=== PATIENT | female | born 1950 | race African-American/Black ===

== ENCOUNTER 2017-07-01 09:53 | Inpatient (IN) | payer MEDICARE ==
[2017-07-01 10:12] LABS: ADD MAN DIFF? NO
[2017-07-01 10:30] LABS: ANION GAP 7 (6-14); BLOOD UREA NITROGEN 20 mg/dL (7-20); BUN/CREATININE RATIO 13 (6-20); CALCIUM 9.3 mg/dL (8.5-10.1); CARBON DIOXIDE 31 mmol/L (21-32); CHLORIDE 97 mmol/L (98-107); CREATININE 1.5 mg/dL (0.6-1.0); GFR 34.6; GLUCOSE 463 mg/dL (70-99); POTASSIUM 4.8 mmol/L (3.5-5.1); SODIUM 135 mmol/L (136-145)
[2017-07-01] MEDS: IV NORMAL SALINE 1000ML BAG 1,000 ML IV (10:30)
[2017-07-01] MEDS ORDERED: hydrALAZINE 20 MG/ML VIAL. (10:33)
[2017-07-01] MEDS: ONDANSETRON PF 4 MG/2 ML VIAL. IV (10:34)
[2017-07-01 10:36] LABS: BASO % 0 % (0-3); EOS % 0 % (0-3); HEMATOCRIT 42.1 % (36.0-47.0); HEMOGLOBIN 13.7 g/dL (12.0-15.5); LYMPH # 1.5 x10^3/uL (1.0-4.8); LYMPH % 14 % (24-48); MEAN CORPUSCULAR HEMOGLOBIN 30 pg (25-35); MEAN CORPUSCULAR HGB CONC 33 g/dL (31-37); MEAN CORPUSCULAR VOLUME 93 fL (79-100); MONO # 0.5 x10^3/uL (0.0-1.1); MONO % 4 % (0-9); NEUT # 9.3 x10^3uL (1.8-7.7); NEUT % 82 % (31-73); PLATELET COUNT 185 x10^3/uL (140-400); RED BLOOD COUNT 4.53 x10^6/uL (3.50-5.40); RED CELL DISTRIBUTION WIDTH 13.3 % (11.5-14.5); WHITE BLOOD COUNT 11.4 x10^3/uL (4.0-11.0)
[2017-07-01 10:37] LABS: ALBUMIN 2.6 g/dL (3.4-5.0); ALBUMIN/GLOBULIN RATIO 0.5 (1.0-1.7); ALK PHOS 111 U/L (46-116); ALT (SGPT) 25 U/L (14-59); AST (SGOT) 24 U/L (15-37); CREATINE KINASE 70 U/L (26-192); LIPASE 96 U/L (73-393); TOTAL BILIRUBIN 0.4 mg/dL (0.2-1.0); TOTAL PROTEIN 8.2 g/dL (6.4-8.2)
[2017-07-01] MEDS: hydrALAZINE 20 MG/ML VIAL. IVP (10:37)
[2017-07-01 10:38] LABS: INR 0.9 (0.8-1.1); PARTIAL THROMBOPLASTIN TIME 26 SEC (24-38); PROTHROMBIN TIME PATIENT 12.1 SEC (11.7-14.0)
[2017-07-01 10:44] LABS: CKMB MASS 1.2 ng/mL (0.0-3.6); CREATINE KINASE 71 U/L (26-192)
[2017-07-01 10:44] LABS: TROPONINI 0.024 ng/mL (0.000-0.055)
[2017-07-01 11:05] LABS: PLT ESTIMATE ADEQUATE (ADEQUATE)
[2017-07-01] MEDS: METOCLOPRAMIDE HCL 10 MG/2 ML VIAL. IV (11:13)
[2017-07-01] MEDS: diphenhydrAMINE 50 MG/ML VIAL IVP (11:13)
[2017-07-01 11:26] LABS: POC GLUCOSE 385 mg/dL (70-99)
[2017-07-01] MEDS ORDERED: INSULIN REGULAR 100 UNIT/ML 10ML VIAL. IV (11:30)
[2017-07-01] MEDS: INSULIN REGULAR 100 UNIT/ML 10ML VIAL. IV (11:39)
[2017-07-01] MEDS ORDERED: ONDANSETRON PF 4 MG/2 ML VIAL. IV (11:45)
[2017-07-01] MEDS ORDERED: MORPHINE SULFATE 4 MG/ML DISP.SYRIN. IV (11:45)
[2017-07-01 12:57] LABS: POC GLUCOSE 336 mg/dL (70-99)
[2017-07-01 13:44] LABS: POC GLUCOSE 356 mg/dL (70-99)
[2017-07-01] MEDS: POLYETHYLENE GLYCOL 3350 17 GM PACKET. PO (15:07)
[2017-07-01] MEDS: cloNIDine HCL 0.1 MG TABLET PO (15:07)
[2017-07-01] MEDS: amLODIPine BESYLATE 10 MG TABLET PO (15:07)
[2017-07-01 16:11] LABS: POC GLUCOSE 341 mg/dL (70-99)
[2017-07-01] MEDS ORDERED: hydrALAZINE 20 MG/ML VIAL. IVP (16:15)
[2017-07-01] MEDS: CARVEDILOL 12.5 MG TABLET. PO ×2 (16:21→16:29)
[2017-07-01] MEDS: INSULIN ASPART 300 UNITS/3 ML INSULN.PEN SQ ×2 (16:26→16:27)
[2017-07-01] MEDS: ISOSORBIDE MONONITRATE ER 30 MG TAB.ER.24H PO (16:55)
[2017-07-01 19:06] LABS: CHOLESTEROL 192 mg/dL (0-200); HDLC 48 mg/dL (40-60); LDLC 126 mg/dL (0-100); NON-HDL CHOLESTEROL 144 mg/dL (0-129); TRIGLYCERIDES 90 mg/dL (0-150); VLDLC 18 mg/dL (0-40)
[2017-07-01 19:15] LABS: THYROID STIM HORMONE (TSH) 3.758 uIU/mL (0.358-3.74)
[2017-07-01 19:36] LABS: TROPONINI 0.059 ng/mL (0.000-0.055)
[2017-07-01] MEDS ORDERED: INSULIN DETEMIR 300 UNITS/3 ML INSULN.PEN. SQ (21:00)
[2017-07-01] MEDS: hydrALAZINE 25 MG TABLET PO (21:00)
[2017-07-01] MEDS: ATORVASTATIN CALCIUM 20 MG TABLET PO (21:23)
[2017-07-01] MEDS: FAMOTIDINE 20 MG TABLET. PO (21:23)
[2017-07-01 22:26] LABS: POC GLUCOSE 245 mg/dL (70-99)
[2017-07-01] MEDS: INSULIN DETEMIR 300 UNITS/3 ML INSULN.PEN. SQ (22:35)
[2017-07-02 00:24] LABS: TROPONINI 0.048 ng/mL (0.000-0.055)
[2017-07-02 04:05] LABS: ADD MAN DIFF? NO
[2017-07-02 05:05] LABS: BASO % 0 % (0-3); EOS % 0 % (0-3); HEMATOCRIT 34.4 % (36.0-47.0); HEMOGLOBIN 11.4 g/dL (12.0-15.5); LYMPH # 2.7 x10^3/uL (1.0-4.8); LYMPH % 27 % (24-48); MEAN CORPUSCULAR HEMOGLOBIN 31 pg (25-35); MEAN CORPUSCULAR HGB CONC 33 g/dL (31-37); MEAN CORPUSCULAR VOLUME 94 fL (79-100); MONO # 0.7 x10^3/uL (0.0-1.1); MONO % 7 % (0-9); NEUT # 6.4 x10^3uL (1.8-7.7); NEUT % 65 % (31-73); PLATELET COUNT 159 x10^3/uL (140-400); RED BLOOD COUNT 3.68 x10^6/uL (3.50-5.40); WHITE BLOOD COUNT 9.9 x10^3/uL (4.0-11.0)
[2017-07-02 05:53] LABS: ALBUMIN 2.1 g/dL (3.4-5.0); ALBUMIN/GLOBULIN RATIO 0.4 (1.0-1.7); ALK PHOS 77 U/L (46-116); ALT (SGPT) 17 U/L (14-59); ANION GAP 8 (6-14); AST (SGOT) 18 U/L (15-37); BLOOD UREA NITROGEN 26 mg/dL (7-20); BUN/CREATININE RATIO 12 (6-20); CALCIUM 8.6 mg/dL (8.5-10.1); CARBON DIOXIDE 27 mmol/L (21-32); CHLORIDE 102 mmol/L (98-107); CREATININE 2.2 mg/dL (0.6-1.0); GFR 26.9; GLUCOSE 295 mg/dL (70-99); POTASSIUM 4.5 mmol/L (3.5-5.1); SODIUM 137 mmol/L (136-145); TOTAL BILIRUBIN 0.5 mg/dL (0.2-1.0); TOTAL PROTEIN 7.1 g/dL (6.4-8.2)
[2017-07-02] MEDS: INSULIN ASPART 300 UNITS/3 ML INSULN.PEN SQ ×6 (08:13→17:00)
[2017-07-02 08:26] LABS: POC GLUCOSE 308 mg/dL (70-99)
[2017-07-02] MEDS: hydrALAZINE 25 MG TABLET PO ×3 (09:04→23:53)
[2017-07-02] MEDS: amLODIPine BESYLATE 10 MG TABLET PO (09:05)
[2017-07-02] MEDS: ISOSORBIDE MONONITRATE ER 30 MG TAB.ER.24H PO (09:05)
[2017-07-02] MEDS: CARVEDILOL 12.5 MG TABLET. PO ×2 (09:05→17:00)
[2017-07-02] MEDS: POLYETHYLENE GLYCOL 3350 17 GM PACKET. PO (09:06)
[2017-07-02 12:07] LABS: POC GLUCOSE 178 mg/dL (70-99)
[2017-07-02] MEDS: IV NORMAL SALINE 1000ML BAG 1,000 ML IV ×2 (12:10→23:51)
[2017-07-02] MEDS ORDERED: DOCUSATE SODIUM 100 MG CAPSULE. PO (15:00)
[2017-07-02] MEDS ORDERED: MORPHINE SULFATE 4 MG/ML DISP.SYRIN. IV (15:00)
[2017-07-02] MEDS ORDERED: hydrALAZINE 20 MG/ML VIAL. IVP (15:00)
[2017-07-02 15:28] LABS: HEMOGLOBIN A1C 12.1 % (4.8-5.6)
[2017-07-02 16:53] LABS: POC GLUCOSE 129 mg/dL (70-99)
[2017-07-02 20:18] LABS: POC GLUCOSE 85 mg/dL (70-99)
[2017-07-02] MEDS: ATORVASTATIN CALCIUM 20 MG TABLET PO (20:45)
[2017-07-02 21:36] LABS: POC GLUCOSE 281 mg/dL (70-99)
[2017-07-02] MEDS: INSULIN DETEMIR 300 UNITS/3 ML INSULN.PEN. SQ (21:48)
[2017-07-03 05:01] LABS: ADD MAN DIFF? NO
[2017-07-03 05:30] LABS: BASO % 0 % (0-3); EOS % 0 % (0-3); HEMATOCRIT 34.7 % (36.0-47.0); HEMOGLOBIN 11.3 g/dL (12.0-15.5); LYMPH # 2.1 x10^3/uL (1.0-4.8); LYMPH % 21 % (24-48); MEAN CORPUSCULAR HEMOGLOBIN 31 pg (25-35); MEAN CORPUSCULAR HGB CONC 33 g/dL (31-37); MEAN CORPUSCULAR VOLUME 94 fL (79-100); MONO # 0.8 x10^3/uL (0.0-1.1); MONO % 8 % (0-9); NEUT % 71 % (31-73); PLATELET COUNT 150 x10^3/uL (140-400); RED BLOOD COUNT 3.69 x10^6/uL (3.50-5.40); RED CELL DISTRIBUTION WIDTH 13.3 % (11.5-14.5)
[2017-07-03 05:49] LABS: ANION GAP 11 (6-14); BLOOD UREA NITROGEN 28 mg/dL (7-20); CARBON DIOXIDE 23 mmol/L (21-32); CHLORIDE 104 mmol/L (98-107); CREATININE 1.6 mg/dL (0.6-1.0); GFR 38.9; GLUCOSE 313 mg/dL (70-99); POTASSIUM 4.2 mmol/L (3.5-5.1); SODIUM 138 mmol/L (136-145)
[2017-07-03 07:19] LABS: POC GLUCOSE 315 mg/dL (70-99)
[2017-07-03] MEDS: CARVEDILOL 12.5 MG TABLET. PO ×2 (08:18→17:00)
[2017-07-03] MEDS: IV NORMAL SALINE 1000ML BAG 1,000 ML IV ×2 (08:19→23:37)
[2017-07-03] MEDS: PANTOPRAZOLE 40 MG TABLET.DR. PO (08:19)
[2017-07-03] MEDS: ISOSORBIDE MONONITRATE ER 30 MG TAB.ER.24H PO (08:19)
[2017-07-03] MEDS: hydrALAZINE 25 MG TABLET PO ×3 (08:19→23:44)
[2017-07-03] MEDS: POLYETHYLENE GLYCOL 3350 17 GM PACKET. PO (08:19)
[2017-07-03] MEDS: ASPIRIN ENTERIC COATED 81 MG TABLET.DR. PO (08:19)
[2017-07-03] MEDS: amLODIPine BESYLATE 10 MG TABLET PO (08:19)
[2017-07-03] MEDS: INSULIN ASPART 300 UNITS/3 ML INSULN.PEN SQ ×6 (08:33→17:00)
[2017-07-03 11:25] LABS: POC GLUCOSE 185 mg/dL (70-99)
[2017-07-03] MEDS: cloNIDine HCL 0.1 MG TABLET PO ×2 (12:14→23:43)
[2017-07-03] MEDS: traMADol 50 MG TABLET PO (12:15)
[2017-07-03 21:12] LABS: POC GLUCOSE 317 mg/dL (70-99)
[2017-07-03] MEDS: INSULIN DETEMIR 300 UNITS/3 ML INSULN.PEN. SQ (22:47)
[2017-07-03] MEDS: ONDANSETRON PF 4 MG/2 ML VIAL. IV (23:15)
[2017-07-03] MEDS: ACETAMINOPHEN 325 MG TABLET. PO (23:42)
[2017-07-03] MEDS: ATORVASTATIN CALCIUM 20 MG TABLET PO (23:42)
[2017-07-04 05:05] LABS: ANION GAP 9 (6-14); BLOOD UREA NITROGEN 21 mg/dL (7-20); CALCIUM 8.5 mg/dL (8.5-10.1); CARBON DIOXIDE 31 mmol/L (21-32); CHLORIDE 101 mmol/L (98-107); CREATININE 1.5 mg/dL (0.6-1.0); GFR 41.9; GLUCOSE 371 mg/dL (70-99); POTASSIUM 3.9 mmol/L (3.5-5.1); SODIUM 141 mmol/L (136-145)
[2017-07-04] MEDS: cloNIDine HCL 0.1 MG TABLET PO ×3 (06:10→23:47)
[2017-07-04 07:29] LABS: POC GLUCOSE 360 mg/dL (70-99)
[2017-07-04] MEDS: INSULIN ASPART 300 UNITS/3 ML INSULN.PEN SQ ×7 (07:30→16:42)
[2017-07-04] MEDS: CARVEDILOL 12.5 MG TABLET. PO ×2 (09:12→17:00)
[2017-07-04] MEDS: ASPIRIN ENTERIC COATED 81 MG TABLET.DR. PO (09:12)
[2017-07-04] MEDS: hydrALAZINE 25 MG TABLET PO ×3 (09:13→20:35)
[2017-07-04] MEDS: ISOSORBIDE MONONITRATE ER 30 MG TAB.ER.24H PO (09:13)
[2017-07-04] MEDS: PANTOPRAZOLE 40 MG TABLET.DR. PO (09:14)
[2017-07-04] MEDS: POLYETHYLENE GLYCOL 3350 17 GM PACKET. PO (09:14)
[2017-07-04] MEDS: amLODIPine BESYLATE 10 MG TABLET PO (09:14)
[2017-07-04] MEDS: IV NORMAL SALINE 1000ML BAG 1,000 ML IV ×2 (09:29→20:33)
[2017-07-04 10:30] LABS: POC GLUCOSE 392 mg/dL (70-99)
[2017-07-04 10:30] LABS: POC GLUCOSE 338 mg/dL (70-99)
[2017-07-04] MEDS: METOCLOPRAMIDE HCL 10 MG/2 ML VIAL. IV ×2 (10:55→17:25)
[2017-07-04 11:48] LABS: POC GLUCOSE 253 mg/dL (70-99)
[2017-07-04] MEDS: IV RINGERS,LACTATED 1000ML 1,000 ML IV ×2 (14:21→23:48)
[2017-07-04] MEDS ORDERED: PROPOFOL 20 ML IV (15:25)
[2017-07-04] MEDS ORDERED: LIDOCAINE 2% 100 MG/5 ML SYRINGE. (15:25)
[2017-07-04 16:40] LABS: POC GLUCOSE 110 mg/dL (70-99)
[2017-07-04] MEDS: ATORVASTATIN CALCIUM 20 MG TABLET PO (20:34)
[2017-07-04 20:39] LABS: POC GLUCOSE 193 mg/dL (70-99)
[2017-07-04] MEDS: INSULIN DETEMIR 300 UNITS/3 ML INSULN.PEN. SQ (20:40)
[2017-07-05] MEDS: cloNIDine HCL 0.1 MG TABLET PO ×3 (05:36→23:35)
[2017-07-05 07:22] LABS: POC GLUCOSE 150 mg/dL (70-99)
[2017-07-05] MEDS: INSULIN ASPART 300 UNITS/3 ML INSULN.PEN SQ ×6 (07:30→16:59)
[2017-07-05] MEDS ORDERED: METOCLOPRAMIDE 5 MG TABLET. PO (11:00)
[2017-07-05] MEDS: hydrALAZINE 25 MG TABLET PO ×3 (12:11→21:12)
[2017-07-05] MEDS: PANTOPRAZOLE 40 MG TABLET.DR. PO (12:11)
[2017-07-05] MEDS: ASPIRIN ENTERIC COATED 81 MG TABLET.DR. PO (12:12)
[2017-07-05] MEDS: POLYETHYLENE GLYCOL 3350 17 GM PACKET. PO (12:12)
[2017-07-05] MEDS: ISOSORBIDE MONONITRATE ER 30 MG TAB.ER.24H PO (12:12)
[2017-07-05] MEDS: CARVEDILOL 12.5 MG TABLET. PO ×2 (12:13→16:57)
[2017-07-05] MEDS: amLODIPine BESYLATE 10 MG TABLET PO (12:13)
[2017-07-05 12:19] LABS: POC GLUCOSE 354 mg/dL (70-99)
[2017-07-05] MEDS: METOCLOPRAMIDE 5 MG TABLET. PO ×2 (15:14→16:30)
[2017-07-05 16:33] LABS: POC GLUCOSE 259 mg/dL (70-99)
[2017-07-05] MEDS: IV RINGERS,LACTATED 1000ML 1,000 ML IV (16:34)
[2017-07-05] MEDS: ATORVASTATIN CALCIUM 20 MG TABLET PO (21:12)
[2017-07-05] MEDS: INSULIN DETEMIR 300 UNITS/3 ML INSULN.PEN. SQ (21:18)
[2017-07-05 22:49] LABS: POC GLUCOSE 173 mg/dL (70-99)
[2017-07-06 05:14] LABS: ADD MAN DIFF? NO
[2017-07-06 05:21] LABS: BASO % 0 % (0-3); EOS # 0.1 x10^3/uL (0.0-0.7); EOS % 1 % (0-3); HEMATOCRIT 30.5 % (36.0-47.0); HEMOGLOBIN 10.2 g/dL (12.0-15.5); LYMPH # 2.8 x10^3/uL (1.0-4.8); LYMPH % 33 % (24-48); MEAN CORPUSCULAR HEMOGLOBIN 31 pg (25-35); MEAN CORPUSCULAR HGB CONC 33 g/dL (31-37); MEAN CORPUSCULAR VOLUME 94 fL (79-100); MONO # 0.7 x10^3/uL (0.0-1.1); MONO % 8 % (0-9); NEUT % 59 % (31-73); PLATELET COUNT 144 x10^3/uL (140-400); RED BLOOD COUNT 3.25 x10^6/uL (3.50-5.40); RED CELL DISTRIBUTION WIDTH 13.2 % (11.5-14.5); WHITE BLOOD COUNT 8.6 x10^3/uL (4.0-11.0)
[2017-07-06 05:37] LABS: ANION GAP 8 (6-14); BLOOD UREA NITROGEN 25 mg/dL (7-20); CALCIUM 8.1 mg/dL (8.5-10.1); CARBON DIOXIDE 27 mmol/L (21-32); CHLORIDE 99 mmol/L (98-107); CREATININE 1.6 mg/dL (0.6-1.0); GFR 38.9; GLUCOSE 395 mg/dL (70-99); POTASSIUM 4.3 mmol/L (3.5-5.1); SODIUM 134 mmol/L (136-145)
[2017-07-06] MEDS: cloNIDine HCL 0.1 MG TABLET PO ×3 (06:41→22:00)
[2017-07-06] MEDS: IV RINGERS,LACTATED 1000ML 1,000 ML IV ×2 (07:00→20:20)
[2017-07-06 07:21] LABS: POC GLUCOSE 396 mg/dL (70-99)
[2017-07-06] MEDS: ASPIRIN ENTERIC COATED 81 MG TABLET.DR. PO (08:30)
[2017-07-06] MEDS: METOCLOPRAMIDE 5 MG TABLET. PO ×2 (08:31→11:53)
[2017-07-06] MEDS: CARVEDILOL 12.5 MG TABLET. PO ×2 (08:31→17:54)
[2017-07-06] MEDS: PANTOPRAZOLE 40 MG TABLET.DR. PO (08:31)
[2017-07-06] MEDS: INSULIN ASPART 300 UNITS/3 ML INSULN.PEN SQ ×8 (09:07→17:57)
[2017-07-06] MEDS: POLYETHYLENE GLYCOL 3350 17 GM PACKET. PO (09:30)
[2017-07-06] MEDS: amLODIPine BESYLATE 10 MG TABLET PO (09:31)
[2017-07-06] MEDS: ISOSORBIDE MONONITRATE ER 30 MG TAB.ER.24H PO (09:31)
[2017-07-06] MEDS: hydrALAZINE 25 MG TABLET PO ×3 (09:31→21:00)
[2017-07-06 11:37] LABS: POC GLUCOSE 390 mg/dL (70-99)
[2017-07-06] MEDS: INSULIN DETEMIR 300 UNITS/3 ML INSULN.PEN. SQ (12:24)
[2017-07-06 14:27] LABS: POC GLUCOSE 321 mg/dL (70-99)
[2017-07-06 17:02] LABS: POC GLUCOSE 120 mg/dL (70-99)
[2017-07-06] MEDS: ACETAMINOPHEN 325 MG TABLET. PO (18:33)
[2017-07-06] MEDS: traMADol 50 MG TABLET PO (18:33)
[2017-07-06 18:37] LABS: POC GLUCOSE 91 mg/dL (70-99)
[2017-07-06] MEDS ORDERED: INSULIN DETEMIR 300 UNITS/3 ML INSULN.PEN. SQ (21:00)
[2017-07-06] MEDS: ATORVASTATIN CALCIUM 20 MG TABLET PO (21:00)
[2017-07-06] MEDS ORDERED: GLUCAGON,HUMAN RECOMBINANT 1 MG/ML VIAL. ×2 (21:47→22:00)
[2017-07-06 21:49] LABS: POC GLUCOSE 34 mg/dL (70-99)
[2017-07-06 21:49] LABS: POC GLUCOSE 64 mg/dL (70-99)
[2017-07-06 21:49] LABS: POC GLUCOSE 29 mg/dL (70-99)
[2017-07-06] MEDS: DEXTROSE 50% 25 GM / 50ML DISP.SYRIN. IV (22:10)
[2017-07-07] MEDS: ONDANSETRON PF 4 MG/2 ML VIAL. IV (00:33)
[2017-07-07 05:20] LABS: POC GLUCOSE 62 mg/dL (70-99)
[2017-07-07 05:20] LABS: POC GLUCOSE 193 mg/dL (70-99)
[2017-07-07 05:20] LABS: POC GLUCOSE 250 mg/dL (70-99)
[2017-07-07] MEDS: INSULIN DETEMIR 300 UNITS/3 ML INSULN.PEN. SQ (05:26)
[2017-07-07] MEDS: INSULIN ASPART 300 UNITS/3 ML INSULN.PEN SQ ×4 (05:27→12:15)
[2017-07-07] MEDS: cloNIDine HCL 0.1 MG TABLET PO ×2 (06:26→13:49)
[2017-07-07 07:12] LABS: POC GLUCOSE 241 mg/dL (70-99)
[2017-07-07] MEDS: ASPIRIN ENTERIC COATED 81 MG TABLET.DR. PO (08:47)
[2017-07-07] MEDS: ISOSORBIDE MONONITRATE ER 30 MG TAB.ER.24H PO (08:47)
[2017-07-07] MEDS: amLODIPine BESYLATE 10 MG TABLET PO (08:47)
[2017-07-07] MEDS: CARVEDILOL 12.5 MG TABLET. PO (08:48)
[2017-07-07] MEDS: hydrALAZINE 25 MG TABLET PO ×2 (08:48→13:48)
[2017-07-07] MEDS: PANTOPRAZOLE 40 MG TABLET.DR. PO (08:48)
[2017-07-07] MEDS: ACETAMINOPHEN 325 MG TABLET. PO ×2 (08:52→16:16)
[2017-07-07] MEDS: POLYETHYLENE GLYCOL 3350 17 GM PACKET. PO (09:00)
[2017-07-07 11:28] LABS: POC GLUCOSE 212 mg/dL (70-99)
[2017-07-07] MEDS ORDERED: METOCLOPRAMIDE 5 MG TABLET. PO (11:30)
[2017-07-07] MEDS: METOCLOPRAMIDE HCL 10 MG/2 ML VIAL. IV (13:47)
== END 2017-07-07 17:12 | disposition home health service (06) | DRG 380 ==
LOC: ER 09:53 → 5 SOUTH 11:26
PROC: 0DJ08ZZ Inspection of Upper Intestinal Tract, Via Natural or Artificial Opening Endoscopic (ICD-10-PCS; principal; 2017-07-04 15:00)
DX: K22.10 Ulcer of esophagus without bleeding (principal); N17.0 Acute kidney failure with tubular necrosis; E11.43 Type 2 diabetes mellitus with diabetic autonomic (poly)neuropathy; K29.70 Gastritis, unspecified, without bleeding; I16.0 Hypertensive urgency; N18.3 Chronic kidney disease, stage 3 (moderate); E11.22 Type 2 diabetes mellitus with diabetic chronic kidney disease; E11.51 Type 2 diabetes mellitus with diabetic peripheral angiopathy without gangrene; E11.65 Type 2 diabetes mellitus with hyperglycemia; E78.5 Hyperlipidemia, unspecified; E86.0 Dehydration; F01.50 Vascular dementia, unspecified severity, without behavioral disturbance, psychotic disturbance, mood disturbance, and anxiety; F17.210 Nicotine dependence, cigarettes, uncomplicated; I12.9 Hypertensive chronic kidney disease with stage 1 through stage 4 chronic kidney disease, or unspecified chronic kidney disease; I25.10 Atherosclerotic heart disease of native coronary artery without angina pectoris; K21.0 Gastro-esophageal reflux disease with esophagitis; K31.84 Gastroparesis; K44.9 Diaphragmatic hernia without obstruction or gangrene; K76.0 Fatty (change of) liver, not elsewhere classified; M19.90 Unspecified osteoarthritis, unspecified site; K80.20 Calculus of gallbladder without cholecystitis without obstruction; Z79.4 Long term (current) use of insulin; Z82.49 Family history of ischemic heart disease and other diseases of the circulatory system; Z86.73 Personal history of transient ischemic attack (TIA), and cerebral infarction without residual deficits; Z90.710 Acquired absence of both cervix and uterus; Z91.11 Patient's noncompliance with dietary regimen; Z91.14 Patient's other noncompliance with medication regimen; Z91.19 Patient's noncompliance with other medical treatment and regimen; Z95.5 Presence of coronary angioplasty implant and graft
CPT/HCPCS: 36415; 70450; 71045; 74176; 76705; 76770; 78264; 80048; 80053; 80061; 82550; 82553; 82962; 83036; 83690; 84443; 84484; 85025; 85610; 85730; 88305; 88342; 93005; 93306; 93925; 93970; 96361; 96374; 96375; 97116-GP; 97162-GP; 97166-GO; 99285; 99285-25; A9541; J0360; J1200; J1610; J1815; J2405; J2704; J2765; J7030; J7042; J7120; J8597

== ENCOUNTER 2018-02-02 11:38 | Emergency (ER) | payer MEDICARE ==
[~2018-02-02] VITALS: Ht 172.7 cm; Wt 79.4 kg
[~2018-02-02 11:38] MED LIST: AMLO10TA6 PO; ASPI81TA59 PO; CARV25TA2 PO; CLON0.1T PO; ESCITALOPRAM OX20 MG PO; HYDR-2868 PO; HYDR12.58 PO; INSU100C4 SQ; INSU100V13 SQ; ISOS30TA4 PO; METO5TAB PO; PANT20TA2 PO; PRAV10TA2 PO; PROM12.56 PO; TRAM50TA PO
--- NOTE | 2018-02-02 11:54 | PHYS DOC ---
Past Medical History Past Medical History: CVA, Diabetes-Type II, High Cholesterol, Hypertension, [place] Additional Past Medical Histor: poor historian Past Surgical History: Hysterectomy, Other Additional Past Surgical Histo: cardiac stents Alcohol Use: Rarely Drug Use: None Adult General HPI HPI Patient is a 67 year old female with history of CVA, dysphagia, hypertension, high cholesterol, diabetes type 2, kidney disease, who [facility] a local [facility] to be evaluated for altered mental status. Patient is a poor historian not able to give us any information. All the information I'm getting is from the registered nurse assigned to the patient who got the information from EMS. Review of Systems Review of Systems Constitutional: Denies fever or chills [] Eyes: Denies change in visual acuity, redness, or eye pain [] HENT: Denies nasal congestion or sore throat [] Respiratory: Denies cough or shortness of breath [] Cardiovascular: No additional information not addressed in HPI [] GI: Denies abdominal pain, nausea, vomiting, bloody stools or diarrhea [] : Denies dysuria or hematuria [] Musculoskeletal: Denies back pain or joint pain [] Integument: Denies rash or skin lesions [] Neurologic: Reports altered mental status. Denies headache, focal weakness or sensory changes [] All other systems were reviewed and found to be within normal limits, except as documented in this note. Current Medications Current Medications Current Medications Medications (Trade) Dose Ordered Sig/[facility] Start Time Stop Time Status Last Admin Dose Admin Aspirin (Lino Aspirin) 325 mg 1X ONCE 02/02/18 13:00 02/02/18 13:01 DC 02/02/18 13:00 325 MG Allergies Allergies Allergies Coded Allergies Type Severity Reaction Last Updated Verified No Known Drug Allergies 07/04/17 No Physical Exam Physical Exam Constitutional: Well developed, well nourished, no acute distress, non-toxic appearance. [] HENT: Normocephalic, atraumatic, bilateral external ears normal, oropharynx moist, no oral exudates, nose normal. [] Eyes: PERRLA, EOMI, conjunctiva normal, no discharge. [] Neck: Normal range of motion, no tenderness, supple, no stridor. [] Cardiovascular:Heart rate regular rhythm, no murmur [] Lungs & Thorax: Bilateral breath sounds clear to auscultation [] Abdomen: Bowel sounds normal, soft, no tenderness, no masses, no pulsatile masses. [] Skin: Warm, dry, no erythema, no rash. [] Back: No tenderness, no CVA tenderness. [] Extremities: No tenderness, no cyanosis, no clubbing, ROM intact, limited range of motion to bilateral upper and lower extremities. Appears slightly contracted to bilateral upper extremities. Neurologic: Alert and oriented X 1, normal motor function, normal sensory function, no focal deficits noted. [] Psychologic: Affect normal, judgement normal, mood normal. [] Current Patient Data Vital Signs Vital Signs Date Time Temp Pulse Resp B/P (MAP) Pulse Ox O2 Delivery O2 Flow Rate FiO2 02/02/18 14:45 74 18 98 02/02/18 11:40 97.5 150/84 (106) Room Air 97.5 Lab Values Laboratory Tests Test 02/02/18 12:00 02/02/18 12:50 White Blood Count 11.3 x10^3/uL (4.0-11.0) H Red Blood Count 3.27 x10^6/uL (3.50-5.40) L Hemoglobin 10.3 g/dL (12.0-15.5) L Hematocrit 30.9 % (36.0-47.0) L Mean Corpuscular Volume 95 fL (79-100) Mean Corpuscular Hemoglobin 31 pg (25-35) Mean Corpuscular Hemoglobin Concent 33 g/dL (31-37) Red Cell Distribution Width 13.9 % (11.5-14.5) Platelet Count 256 x10^3/uL (140-400) Neutrophils (%) (Auto) 78 % (31-73) H Lymphocytes (%) (Auto) 15 % (24-48) L Monocytes (%) (Auto) 6 % (0-9) Eosinophils (%) (Auto) 0 % (0-3) Basophils (%) (Auto) 0 % (0-3) Neutrophils # (Auto) 8.8 x10^3uL (1.8-7.7) H Lymphocytes # (Auto) 1.7 x10^3/uL (1.0-4.8) Monocytes # (Auto) 0.7 x10^3/uL (0.0-1.1) Eosinophils # (Auto) 0.0 x10^3/uL (0.0-0.7) Basophils # (Auto) 0.0 x10^3/uL (0.0-0.2) Sodium Level 141 mmol/L (136-145) Potassium Level 4.9 mmol/L (3.5-5.1) Chloride Level 101 mmol/L (98-107) Carbon Dioxide Level 32 mmol/L (21-32) Anion Gap 8 (6-14) Blood Urea Nitrogen 34 mg/dL (7-20) H Creatinine 1.8 mg/dL (0.6-1.0) H Estimated GFR (Cockcroft-Gault) 33.9 BUN/Creatinine Ratio 19 (6-20) Glucose Level 216 mg/dL (70-99) H Calcium Level 9.7 mg/dL (8.5-10.1) Magnesium Level 1.9 mg/dL (1.8-2.4) Total Bilirubin 0.3 mg/dL (0.2-1.0) Aspartate Amino Transferase (AST) 19 U/L (15-37) Alanine Aminotransferase (ALT) 20 U/L (14-59) Alkaline Phosphatase 54 U/L (46-116) Troponin I Quantitative < 0.017 ng/mL (0.000-0.055) CA-Lrx-L-Type Natriuretic Peptide 296 pg/mL (0-124) H Total Protein 7.5 g/dL (6.4-8.2) Albumin 2.8 g/dL (3.4-5.0) L Albumin/Globulin Ratio 0.6 (1.0-1.7) L Laboratory Tests 02/02/18 12:00 Laboratory Tests 02/02/18 12:50 EKG EKG 15:[address] Sahu sinus rhythm HR 74 no STEMI[] Radiology/Procedures Radiology/Procedures []PROCEDURE: PORTABLE CHEST 1V PORTABLE CHEST 1V History: AMS. Comparison: July 01, 2017 image but no available report Cardiomediastinal silhouette: Stable Lungs: No focal airspace consolidation. Pleura: No evidence of pleural effusion. Pneumothorax: None visualized Impression: No acute radiographic findings. Electronically signed by: Aldo Curiel MD (02/02/2018 12:31 PM) [id number] PROCEDURE: CT HEAD WO CONTRAST CT head without intravenous contrast History: Altered mental status. Comparison: CT head September 16, 2017. Technique: Axial images are obtained of the head from the skull base through the vertex without IV contrast. Exposure: One or more of the following individualized dose reduction techniques were utilized for this examination: 1. Automated exposure control 2. Adjustment of the mA and/or kV according to patient size 3. Use of iterative reconstruction technique Findings: There is interval development of right paramedian frontal lobe low-attenuation, compatible with infarction in right anterior cerebral artery territory, either subacute or old in chronology; this is in right anterior cerebral artery territory. No obvious intracranial mass, mass-effect, midline shift, or hemorrhage is identified. Basilar cisterns are patent. Bone windows demonstrate no acute calvarial abnormality. The visualized paranasal sinuses appear clear. Impression: 1. Right anterior cerebral artery territory infarction, either subacute versus old. Results called to referring emergency legal department manager, Sj Patterson, at 1249 hours. Electronically signed by: Aldo Thompson MD (02/02/2018 12:49 PM) [id number] DICTATED and SIGNED BY: ALDO THOMPSON MD DATE: 02/02/18 1244 Course & Med Decision Making Course & Med Decision Making Pertinent Labs and Imaging studies reviewed. (See chart for details) This is a 67-year-old female patient presenting to the ED today to be evaluated for altered mental status change. Grand daughter came and requested we transfer patient to [facility]. She states that is where she usually receives her care. Received a call from radiologist concerning the patient's CT of the head Impression: 1. Right anterior cerebral artery territory infarction, either subacute versus old. Granddaughter states patient has had multiple strokes. Unknown if this is subacute or an old stroke. Stroke scale 14 14:[address] Holt who accepted patient at [facility]. Staff Physician Addendum: I was working in the ER during the course of this patient's visit. I was available for consultation as needed, but I was not directly involved in the care of this patient. Dragon Disclaimer Dragon Disclaimer This electronic medical record was generated, in whole or in part, using a voice recognition dictation system. Departure Departure Impression: Primary Impression: CVA (cerebral vascular accident) Additional Impression: Altered mental status Disposition: 05 TRANSFER OTHER Condition: STABLE Referrals: NEHA CHAUDHARI MD (PCP) Problem Qualifiers Primary Impression: CVA (cerebral vascular accident) CVA mechanism: unspecified Qualified Codes: I63.9 - Cerebral infarction, unspecified Additional Impression: Altered mental status Altered mental status type: unspecified Qualified Codes: R41.82 - Altered mental status, unspecified SJ PATTERSON APRN Feb 02, 2018 11:54 ALCON SAHU MD Feb 03, 2018 18:08
[2018-02-02 12:31] LABS: BASO % 0 % (0-3); EOS % 0 % (0-3); HEMATOCRIT 30.9 % (36.0-47.0); HEMOGLOBIN 10.3 g/dL (12.0-15.5); LYMPH # 1.7 x10^3/uL (1.0-4.8); LYMPH % 15 % (24-48); MEAN CORPUSCULAR HEMOGLOBIN 31 pg (25-35); MEAN CORPUSCULAR HGB CONC 33 g/dL (31-37); MEAN CORPUSCULAR VOLUME 95 fL (79-100); MONO # 0.7 x10^3/uL (0.0-1.1); MONO % 6 % (0-9); NEUT # 8.8 x10^3uL (1.8-7.7); NEUT % 78 % (31-73); PLATELET COUNT 256 x10^3/uL (140-400); RED BLOOD COUNT 3.27 x10^6/uL (3.50-5.40); RED CELL DISTRIBUTION WIDTH 13.9 % (11.5-14.5); WHITE BLOOD COUNT 11.3 x10^3/uL (4.0-11.0)
--- NOTE | 2018-02-02 12:34 | RAD ---
PORTABLE CHEST 1V History: AMS. Comparison: July 01, 2017 image but no available report Cardiomediastinal silhouette: Stable Lungs: No focal airspace consolidation. Pleura: No evidence of pleural effusion. Pneumothorax: None visualized Impression: No acute radiographic findings. Electronically signed by: Aldo Curiel MD (02/02/2018 12:31 PM) [id number]
--- NOTE | 2018-02-02 12:52 | RAD ---
CT head without intravenous contrast History: Altered mental status. Comparison: CT head September 16, 2017. Technique: Axial images are obtained of the head from the skull base through the vertex without IV contrast. Exposure: One or more of the following individualized dose reduction techniques were utilized for this examination: 1. Automated exposure control 2. Adjustment of the mA and/or kV according to patient size 3. Use of iterative reconstruction technique Findings: There is interval development of right paramedian frontal lobe low-attenuation, compatible with infarction in right anterior cerebral artery territory, either subacute or old in chronology; this is in right anterior cerebral artery territory. No obvious intracranial mass, mass-effect, midline shift, or hemorrhage is identified. Basilar cisterns are patent. Bone windows demonstrate no acute calvarial abnormality. The visualized paranasal sinuses appear clear. Impression: 1. Right anterior cerebral artery territory infarction, either subacute versus old. Results called to referring emergency director emergency department, Joana Hensley, at 1249 hours. Electronically signed by: Aldo Mccormick MD (02/02/2018 12:49 PM) [email or web address]
[2018-02-02] MEDS ORDERED: ASPIRIN 325 MG TABLET PO ONE (13:00)
[2018-02-02 13:19] LABS: CALCIUM 9.7 mg/dL (8.5-10.1); CREATININE 1.8 mg/dL (0.6-1.0); GFR 33.9; POTASSIUM 4.9 mmol/L (3.5-5.1)
[2018-02-02 13:33] LABS: ALBUMIN 2.8 g/dL (3.4-5.0); ALBUMIN/GLOBULIN RATIO 0.6 (1.0-1.7); MAGNESIUM 1.9 mg/dL (1.8-2.4); TOTAL BILIRUBIN 0.3 mg/dL (0.2-1.0); TOTAL PROTEIN 7.5 g/dL (6.4-8.2)
[2018-02-02 14:45] VITALS: BP 145/69
--- NOTE | 2018-02-03 07:31 | EKG ---
[address] [place] [address] Test Date: 2018-02-02 Test Time: 15:19:02 Pat Name: SAÚL MOORE Department: Room: Gender: F Delivery Specialist: : [id number] Requested By: SJ PATTERSON Order Number: [id number] Reading MD: Omkar Lawler MD Measurements Intervals [place] Rate: 74 P: 41 NE: 128 QRS: 45 QRSD: 74 T: 96 QT: 384 QTc: 427 Interpretive Statements SINUS RHYTHM Electronically Signed On 02-05-2018 11:50:13 CDT by Omkar Lawler MD
== END 2018-02-02 15:50 | disposition short-term general hospital (02) ==
LOC: ER 11:38
DX: R41.82 Altered mental status, unspecified (principal); I63.9 Cerebral infarction, unspecified; E78.00 Pure hypercholesterolemia, unspecified; I10 Essential (primary) hypertension; E11.9 Type 2 diabetes mellitus without complications; I25.2 Old myocardial infarction; Z86.73 Personal history of transient ischemic attack (TIA), and cerebral infarction without residual deficits; Z95.5 Presence of coronary angioplasty implant and graft
CPT/HCPCS: 36415; 51701; 70450; 71045; 80053; 83735; 83880; 84484; 85025; 93005; 99285-25